=== PATIENT | male | born 1975 | race Caucasian/White ===

== ENCOUNTER → 2018-10-17 | Outpatient (REF) ==
--- NOTE | 2018-10-18 04:39 | REP ---
Clinical: Pain and disability. Technique: AP, lateral, coned-down views of the lumbar spine. Findings: Three views of the lumbosacral spine demonstrate satisfactory alignment and lordosis without acute fracture / compression injury or subluxation. Mild endplate sclerosis with disc space narrowing and subtle inferior spurring at the L4-5 and L5-L1 levels. Impression: Mild degenerative changes of the lower lumbar spine. No acute fracture / compression injury or subluxation. Electronically Signed by Conner Flores MD 10/18/2018 04:31 A
== END ==
LOC: M SMT 10:03
PROVIDERS: ATTEND Internal Medicine
DX: Z02.71 Encounter for disability determination (principal)